=== PATIENT | male | born 1950 | race Hispanic/Latino ===

== ENCOUNTER 2018-01-07 11:39 | Emergency (ER) | payer MEDICARE ==
[2018-01-07 11:56] VITALS: BP 125/79; PULSE 89; RESP 20; TEMP 98.4; O2SAT 96
[2018-01-07] MEDS ORDERED: TDAP Vaccine 0.5 mL Syr IM ONE (12:10)
--- NOTE | 2018-01-07 12:25 | ED PDOC ---
Arrival/HPI - General Chief Complaint: Lower Extremity Problem/Injury Time Seen by Provider: 01/07/18 11:41 Historian: Patient - History of Present Illness Narrative History of Present Illness (Text): 01/07/18 12:23 This 67 yo male presents to this ED c/o left food bleeding wound x [employer]. Patient stated he was scraping his foot callous, when he accidentally scarped medial aspect of left foot. Patient was able to control bleeding with pressure. Patient does not recall last Tetanus. Denies other complains. Time/Duration: Other (see hpi) Context: Home Past Medical History - Provider Review Nursing Documentation Reviewed: Yes - Psychiatric Hx Substance Use: No - Surgical History Other/Comment: hernia repair - Anesthesia Hx Anesthesia: Yes Hx Anesthesia Reactions: No Hx Malignant Hyperthermia: No Family/Social History - Physician Review Nursing Documentation Reviewed: Yes Family/Social History: Other (noncontributory) Smoking Status: Heavy Smoker > 10 Cigarettes Daily Hx Alcohol Use: No Hx Substance Use: No Allergies/Home Meds Allergies/Adverse Reactions: Allergies No Known Allergies Allergy (Verified 01/07/18 11:56) Review of Systems - Review of Systems Constitutional: Normal. absent: Fatigue, Weight Change, Fevers, Night Sweats Eyes: Normal ENT: Normal Respiratory: Normal Cardiovascular: Normal Gastrointestinal: Normal Genitourinary Male: Normal Musculoskeletal: Other (left medila foot bleeding wound.) Skin: Normal Neurological: Normal Endocrine: Normal Hemo/Lymphatic: Normal Psychiatric: Normal Physical Exam Vital Signs Temp Pulse Resp BP Pulse Ox 01/07/18 11:50 98.4 F 89 20 125/79 96 Temperature: Afebrile Blood Pressure: Normal Pulse: Regular Respiratory Rate: Normal Appearance: Positive for: Well-Appearing, Non-Toxic, Comfortable Pain Distress: None Mental Status: Positive for: Alert and Oriented X 3 - Systems Exam Head: Present: Atraumatic, Normocephalic Mouth: Present: Moist Mucous Membranes Neck: Present: Normal Range of Motion Upper Extremity: Present: Normal Inspection, Normal ROM Lower Extremity: Present: NORMAL PULSES, Normal ROM, Neurovascularly Intact, Capillary Refill < 2 s, Other ((+) superficial abrasion noted on left medial foot. (+) b/l lower leg venous stasis). No: Edema, CALF TENDERNESS, Cyanosis, Eliza's Sign, Tenderness, Swelling, Erythema, Temperature Abnormalties Neurological: Present: GCS=15, CN II-XII Intact, Speech Normal, Motor Func Grossly Intact, Normal Sensory Function, Normal Cerebellar Funct, Gait Normal, Memory Normal Skin: Present: Warm, Dry, Normal Color. No: Rashes Psychiatric: Present: Alert, Oriented x 3, Normal Insight, Normal Concentration Medical Decision Making ED Course and Treatment: 01/07/18 13:09 Re-evaluation. Patient feels better. Discussed results and plan with patient who expresses understanding. All questions answered and there is agreement with the plan to discharge home with instructions. Patient stable for discharge. Return if symptoms persist or worsen. Clean wound with soap and water, and to avoid removing or scraping feet. To return to emergency if bleeding returns. Re-evaluation Time: 13:10 Reassessment Condition: Re-examined, Improved - Medication Orders Current Medication Orders: Discontinued Medications Cephalexin Monohydrate (Keflex) 500 mg PO STAT STA PRN Reason: Protocol Stop: 01/07/18 12:11 Last Admin: 01/07/18 12:24 Dose: 500 mg Tetanus/Reduced Diphtheria/Acell Pertussis (Boostrix Vaccine Inj) 0.5 ml IM .ONCE ONE Stop: 01/07/18 12:11 Last Admin: 01/07/18 12:24 Dose: 0.5 ml Disposition/Present on Arrival - Present on Arrival Any Indicators Present on Arrival: No History of DVT/PE: No History of Uncontrolled Diabetes: No Urinary Catheter: No History of Decub. Ulcer: No History Surgical Site Infection Following: None - Disposition Have Diagnosis and Disposition been Completed?: Yes Diagnosis: Abrasion foot/toe Disposition: HOME/ ROUTINE Disposition Time: 13:11 Patient Plan: Discharge Condition: IMPROVED Discharge Instructions (ExitCare): Skin Abrasions (DC) Additional Instructions: Call private doctor for follow up visit in 1-2 days. Clean wound daily with soap and water. Do not scrape feet. Return to emergency if bleeding return. Take medication as instructed. Prescriptions: Cephalexin [cephalexin] 500 mg PO QID #20 cap Referrals: Vinicius Hand MD [Primary Care Provider] - Follow up with primary Forms: [employer] (Turkish)
== END 2018-01-07 13:21 | disposition home or self-care (01) ==
LOC: ED 11:39
DX: S90.812A Abrasion, left foot, initial encounter (principal); W22.8XXA Striking against or struck by other objects, initial encounter; Y92.009 Unspecified place in unspecified non-institutional (private) residence as the place of occurrence of the external cause; F17.210 Nicotine dependence, cigarettes, uncomplicated; Z23 Encounter for immunization